=== PATIENT | male | born 1960 | race African-American/Black ===

== ENCOUNTER 2024-10-29 09:34 | Emergency (ER) | payer MEDICARE, MEDICAID ==
[~2024-10-29] VITALS: Ht 160 cm; Wt 79.0 kg
[2024-10-29 09:49] VITALS: O2SAT 99
[2024-10-29 11:17] LABS: BASOPHILS % 0.9 % (0.0-2.0); EOSINOPHILS % 2.8 % (0.0-5.0); HEMATOCRIT. 44.0 % (42.0-52.0); HEMOGLOBIN. 14.2 g/dL (14.0-18.0); LYMPHOCYTES % 47.4 % (20.0-50.0); MEAN PLATELET VOLUME 8.8 fl (7.4-10.4); MONOCYTES % 13.1 % (2.0-8.0); NEUTROPHILS % 35.8 % (40.0-76.0); PLATELET 234 x1000/uL (130-400); RED BLOOD CELL COUNT 5.18 mill/uL (4.7-6.1); RED CELL DISTRIBUTION WIDTH 15.7 % (11.6-14.6)
[2024-10-29 11:35] LABS: CREATININE 1.1 mg/dL (0.6-1.3); UREA NITROGEN BLOOD 11 mg/dL (9-23)
[2024-10-29 11:37] LABS: ASPARTATE AMINOTRANSFERASE 16 IU/L (<34); BILIRUBIN DIRECT 0.1 mg/dL (<=3.0); BILIRUBIN TOTAL 0.5 mg/dL (0.1-1.0); PROTEIN TOTAL 6.9 g/dL (6.0-8.3)
[2024-10-29] MEDS ORDERED: HYDR30CR80 TP (11:59)
[2024-10-29] MEDS ORDERED: SENN-371 MT (11:59)
[2024-10-29] MEDS ORDERED: DOCU-138 MT (11:59)
[2024-10-29 12:30] VITALS: BP 170/72; PULSE 75; RESP 16; TEMP 36.9; O2SAT 100
== END 2024-10-29 12:33 | disposition home or self-care (01) ==
LOC: ER 09:34
DX: K59.00 Constipation, unspecified (principal); K64.4 Residual hemorrhoidal skin tags; Z88.0 Allergy status to penicillin
CPT/HCPCS: 36415; 74176; 80048; 80076; 85025; 99284; A4606